=== PATIENT | male | born 1990 | race American Indian/Alaskan Native ===

== ENCOUNTER 2018-09-28 09:04 | Emergency (ER) | payer SELFPAY ==
[2018-09-28 09:11] VITALS: BP 114/86
[2018-09-28] MEDS ORDERED: TETRACAINE 0.5% OU ONE (09:42)
--- NOTE | 2018-09-28 09:50 | Emergency Department Report ---
Eye Injury/Foreign Body - HPI Duration: 2 Days Eye Location: Right Severity: Moderate Eye Symptoms: Eye Pain: Yes, Blurred Vision: Yes, Eye Redness: Yes, Grinding/Hammering Metal: No, Used Eye Protection: No, Contact Lens Use: No, Recalls Injury: No, Photophobia: No Other History: Patient is a 28-year-old male who was working with some wood yesterday and he believes a piece a shaving got into his right eye. Patient was able to flush his eye but still has pain and swelling with redness. He denies any exudate. ED Review of Systems ROS: Stated complaint: R EYE PAIN Other details as noted in HPI Comment: All other systems reviewed and negative ED Past Medical Hx - Past Medical History Previous Medical History?: No - Surgical History Past Surgical History?: No - Social History Smoking Status: Current Every Day Smoker Substance Use Type: Alcohol - Medications Home Medications: Home Medications Medication Instructions Recorded Confirmed Last Taken Type Gentamicin 0.3% Ophth Soln 2 drops OP Q4H #1 bottle 09/28/18 Unknown Rx Naphazoline HCl/Pheniramine 2 drop OP TID #15 ml 09/28/18 Unknown Rx [Naphcon-A Eye Drops] Eye Injury Exam - Exam General: Vital signs noted. No distress. Alert and acting appropriately. Right eye shows conjunctival injection with some mild edema to the right upper eyelid. Neck shock and Zantac.. Patient has no pain with light reflex. Patient otherwise is alert and oriented 3 in no acute distress. ED Course Vital Signs 09/28/18 09:09 Temperature 98.9 F Pulse Rate 67 Respiratory 16 Rate Blood Pressure 114/86 Blood Pressure 114/86 [Left] O2 Sat by Pulse 99 Oximetry ED Medical Decision Making - Medical Decision Making Patient's eyelids were inverted and there are no foreign bodies present. The patient likely with corneal abrasion L be started on medications for symptomatic relief. Patient discharged home. Critical care attestation.: If time is entered above; I have spent that time in minutes in the direct care of this critically ill patient, excluding procedure time. ED Disposition Clinical Impression: Cornea abrasion Qualifiers: Encounter type: initial encounter Laterality: right Qualified Code(s): S05.01XA - Injury of conjunctiva and corneal abrasion without foreign body, right eye, initial encounter Disposition: DC-01 TO HOME OR SELFCARE Is pt being admited?: No Does the pt Need Aspirin: No Condition: Stable Instructions: Corneal Abrasion (ED) Time of Disposition: 09:51
== END 2018-09-28 10:12 | disposition home or self-care (01) ==
LOC: ED 09:04
DX: S05.01XA Injury of conjunctiva and corneal abrasion without foreign body, right eye, initial encounter (principal); F17.200 Nicotine dependence, unspecified, uncomplicated; X58.XXXA Exposure to other specified factors, initial encounter; Y93.89 Activity, other specified; Y92.89 Other specified places as the place of occurrence of the external cause; Y99.8 Other external cause status
CPT/HCPCS: 99282